=== PATIENT | female | born 1935 | race Native Hawaiian/Other Pacific Islander ===

== ENCOUNTER 2016-06-18 09:29 | Outpatient (CLI) | payer OTHER ==
[~2016-06-18 09:29] MED LIST: ACTOS15 MG PO; ALPR0.5T24 PO; DEMADEX20 MG PO; GABA300C2 PO; GLIM4TAB PO; KETOROLAC15 MG/ML IJ; LEVO0.1224 PO; METO50TA63 PO; NEXIUM40 M1 PO
[2016-06-18 10:31] LABS: POTASSIUM 3.6 mmol/L (3.6-5.2)
[2016-06-18 10:49] LABS: PLATELET COUNT 367 K/uL (152-353)
== END 2016-06-18 19:09 | disposition home or self-care (01) ==
LOC: EDBD 09:29 → LABW 09:29
PROVIDERS: Internal Medicine
DX: E11.9 Type 2 diabetes mellitus without complications (principal); E79.0 Hyperuricemia without signs of inflammatory arthritis and tophaceous disease
CPT/HCPCS: 36415; 80053; 80061; 81000; 82043; 82570; 83036; 84439; 84443; 84550; 85027

== ENCOUNTER 2016-06-29 15:39 | Inpatient (IN) | payer OTHER | END 2016-07-21 12:36 | disposition still patient (30) | LOC: PAVB 15:39 | PROVIDERS: ADMIT Internal Medicine | DX: Z51.89 Encounter for other specified aftercare (principal) ==

== ENCOUNTER 2016-07-15 13:32 | Outpatient (CLI) | payer OTHER ==
[2016-07-15 17:18] LABS: PLATELET COUNT 411 K/uL (152-353)
== END 2016-07-15 19:24 | disposition home or self-care (01) ==
LOC: RAD 13:32
PROVIDERS: Internal Medicine
DX: M54.89 Other dorsalgia (principal); J06.9 Acute upper respiratory infection, unspecified
CPT/HCPCS: 81000; 85027; 87088

== ENCOUNTER 2016-07-19 05:52 | Outpatient (CLI) | payer OTHER | END 2016-07-20 01:56 | disposition home or self-care (01) | LOC: LAB 05:52 | DX: D64.89 Other specified anemias (principal) | CPT/HCPCS: 36415; 85014; 85018 ==

== ENCOUNTER 2016-07-21 13:02 | Inpatient (IN) | payer OTHER | END 2016-08-21 08:11 | disposition still patient (30) | LOC: PAVB 13:02 | PROVIDERS: ADMIT Internal Medicine | DX: Z51.89 Encounter for other specified aftercare (principal) ==

== ENCOUNTER 2016-07-22 07:24 | Outpatient (CLI) | payer OTHER ==
[2016-07-22 10:54] LABS: PLATELET COUNT 301 K/uL (152-353)
== END 2016-07-22 19:29 | disposition home or self-care (01) ==
LOC: LAB 07:24
PROVIDERS: Internal Medicine
DX: D64.89 Other specified anemias (principal); I10 Essential (primary) hypertension
CPT/HCPCS: 36415; 85027

== ENCOUNTER 2016-07-23 05:23 | Outpatient (CLI) | payer OTHER ==
[2016-07-23 05:45] LABS: PLATELET COUNT 331 K/uL (152-353)
== END 2016-07-23 19:45 | disposition home or self-care (01) ==
LOC: LAB 05:23
PROVIDERS: Internal Medicine
DX: I10 Essential (primary) hypertension (principal); D64.9 Anemia, unspecified
CPT/HCPCS: 85027

== ENCOUNTER 2016-07-24 14:12 | Outpatient (CLI) | payer OTHER ==
--- NOTE | 2016-07-24 17:47 | NUR ---
PT TO ROOM PER W/C VIA MAT MAN FOR INFUSION FOR 2 UNITS PRBCS. PT WILL BE D/C'D BACK TO [facility] POST TRANSFUSION.
[2016-07-24 18:25] VITALS: BP 134/63; TEMP 98.7
== END 2016-07-25 05:20 | disposition home or self-care (01) ==
LOC: INF 14:12 → LAB 14:12 → INF 19:15
PROC: 30233N1 Transfusion of Nonautologous Red Blood Cells into Peripheral Vein, Percutaneous Approach (ICD-10-PCS; principal; 2016-07-24)
PROC: 30233N1 Transfusion of Nonautologous Red Blood Cells into Peripheral Vein, Percutaneous Approach (ICD-10-PCS; 2016-07-25)
DX: D64.89 Other specified anemias (principal); D50.8 Other iron deficiency anemias
CPT/HCPCS: 36415; 36430; 82607; 82728; 82746; 83540; 83550; 86850; 86900; 86901; 86922; P9016

== ENCOUNTER 2016-07-25 10:53 | Outpatient (CLI) | payer OTHER | END 2016-07-25 18:59 | disposition home or self-care (01) | LOC: LAB 10:53 | DX: E83.111 Hemochromatosis due to repeated red blood cell transfusions (principal); D64.89 Other specified anemias | CPT/HCPCS: 85014; 85018 ==

== ENCOUNTER 2016-07-31 05:27 | Outpatient (CLI) | payer OTHER ==
[2016-07-31 08:09] LABS: PLATELET COUNT 324 K/uL (152-353)
== END 2016-07-31 19:04 | disposition home or self-care (01) ==
LOC: LAB 05:27
PROVIDERS: Internal Medicine
DX: D64.89 Other specified anemias (principal)
CPT/HCPCS: 36415; 85027

== ENCOUNTER 2016-08-04 06:26 | Outpatient (CLI) | payer OTHER | END 2016-08-04 19:10 | disposition home or self-care (01) | LOC: LAB 06:26 | DX: D64.89 Other specified anemias (principal) | CPT/HCPCS: 82607; 82746 ==

== ENCOUNTER 2016-08-13 05:57 | Outpatient (CLI) | payer OTHER ==
[2016-08-13 08:21] LABS: PLATELET COUNT 222 K/uL (152-353)
== END 2016-08-13 19:58 | disposition home or self-care (01) ==
LOC: LAB 05:57
PROVIDERS: Internal Medicine
DX: D64.89 Other specified anemias (principal)
CPT/HCPCS: 85027

== ENCOUNTER 2016-08-16 04:20 | Outpatient (CLI) | payer OTHER | END 2016-08-16 19:21 | disposition home or self-care (01) | LOC: LAB 04:20 | DX: D64.89 Other specified anemias (principal) | CPT/HCPCS: 36415; 85014; 85018 ==

== ENCOUNTER 2016-08-21 09:13 | Inpatient (IN) | payer OTHER | END 2016-09-20 09:18 | disposition still patient (30) | LOC: PAVB 09:13 | PROVIDERS: ADMIT Internal Medicine | DX: Z51.89 Encounter for other specified aftercare (principal) ==

== ENCOUNTER 2016-08-25 05:04 | Outpatient (CLI) | payer OTHER ==
[2016-08-25 07:05] LABS: PLATELET COUNT 242 K/uL (152-353)
== END 2016-08-25 06:04 | disposition home or self-care (01) ==
LOC: LAB 05:04
PROVIDERS: Internal Medicine
DX: I10 Essential (primary) hypertension (principal); D64.89 Other specified anemias; E11.9 Type 2 diabetes mellitus without complications
CPT/HCPCS: 83036; 85027

== ENCOUNTER 2016-09-08 13:08 | Outpatient (CLI) | payer OTHER | END 2016-09-08 19:07 | disposition home or self-care (01) | LOC: LAB 13:08 | DX: Z16.24 Resistance to multiple antibiotics (principal) | CPT/HCPCS: 87081 ==

== ENCOUNTER 2016-09-20 10:39 | Inpatient (IN) | payer OTHER | END 2016-10-21 10:17 | disposition still patient (30) | LOC: PAVB 10:39 | PROVIDERS: ADMIT Internal Medicine | DX: Z51.89 Encounter for other specified aftercare (principal) | CPT/HCPCS: 85014; 85018 ==

== ENCOUNTER 2016-09-23 10:04 | Outpatient (CLI) | payer OTHER | END 2016-09-23 12:00 | disposition home or self-care (01) | LOC: LAB 10:04 → INF 10:04 | PROC: 30233N1 Transfusion of Nonautologous Red Blood Cells into Peripheral Vein, Percutaneous Approach (ICD-10-PCS; principal; 2016-09-23) | DX: D64.89 Other specified anemias (principal) | CPT/HCPCS: 36415; 36430; 85014; 85018; 86850; 86900; 86901; 86922; P9016 ==

== ENCOUNTER 2016-09-24 14:41 | Outpatient (CLI) | payer OTHER | END 2016-09-24 16:00 | disposition home or self-care (01) | LOC: LAB 14:41 | DX: D64.89 Other specified anemias (principal) ==

== ENCOUNTER 2016-10-19 16:25 | Outpatient (CLI) | payer OTHER | END 2016-10-19 19:34 | disposition home or self-care (01) | LOC: LAB 16:25 | DX: R73.09 Other abnormal glucose (principal) | CPT/HCPCS: 82947 ==

== ENCOUNTER 2016-10-21 10:35 | Inpatient (IN) | payer OTHER | END 2016-11-20 15:21 | disposition still patient (30) | LOC: PAVB 10:35 | PROVIDERS: ADMIT Internal Medicine | DX: Z51.89 Encounter for other specified aftercare (principal) ==

== ENCOUNTER 2016-10-25 07:32 | Outpatient (CLI) | payer OTHER | END 2016-10-25 19:23 | disposition home or self-care (01) | LOC: LAB 07:32 | DX: D64.89 Other specified anemias (principal) | CPT/HCPCS: 85014; 85018 ==

== ENCOUNTER 2016-11-12 21:52 | Outpatient (CLI) | payer OTHER | END 2016-11-12 23:20 | disposition home or self-care (01) | LOC: LAB 21:52 | DX: R73.9 Hyperglycemia, unspecified (principal) | CPT/HCPCS: 82947 ==

== ENCOUNTER 2016-11-20 16:05 | Inpatient (IN) | payer OTHER | END 2016-12-21 09:49 | disposition still patient (30) | LOC: PAVB 16:05 | PROVIDERS: ADMIT Internal Medicine | DX: Z51.89 Encounter for other specified aftercare (principal) ==

== ENCOUNTER 2016-11-22 07:34 | Outpatient (CLI) | payer OTHER ==
[2016-11-22 08:53] LABS: POTASSIUM 3.7 mmol/L (3.6-5.2)
[2016-11-22 08:59] LABS: PLATELET COUNT 228 K/uL (152-353)
== END 2016-11-22 08:35 | disposition home or self-care (01) ==
LOC: LAB 07:34
PROVIDERS: Internal Medicine
DX: D64.89 Other specified anemias (principal); I10 Essential (primary) hypertension; E11.9 Type 2 diabetes mellitus without complications
CPT/HCPCS: 80053; 83036; 84443; 84550; 85027

== ENCOUNTER 2016-11-29 19:54 | Outpatient (CLI) | payer OTHER | END 2016-11-29 21:00 | disposition home or self-care (01) | LOC: RAD 19:54 → CT 19:54 | DX: R29.6 Repeated falls (principal); M54.5 Low back pain ==

== ENCOUNTER 2016-12-02 17:19 | Emergency (ER) | payer OTHER ==
[~2016-12-02] VITALS: Ht 147.3 cm; Wt 71.7 kg
[2016-12-02 18:05] LABS: PLATELET COUNT 274 K/uL (152-353)
[2016-12-02 18:32] LABS: POTASSIUM 4.4 mmol/L (3.6-5.2)
[2016-12-02 20:14] VITALS: BP 144/91; TEMP 98.3
== END 2016-12-02 20:26 | disposition short-term general hospital (02) ==
LOC: ED 17:19
DX: I50.9 Heart failure, unspecified (principal); I48.91 Unspecified atrial fibrillation; E11.65 Type 2 diabetes mellitus with hyperglycemia; R80.8 Other proteinuria
CPT/HCPCS: 36415; 36600; 80053; 81000; 82805; 83880; 84443; 84484; 85027; 93005; 96372; 96374; 96375; 96376; 99284; J3490

== ENCOUNTER 2016-12-02 20:20 | Outpatient (CLI) | payer OTHER | END 2016-12-02 21:07 | disposition short-term general hospital (02) | LOC: AMB 20:20 | DX: I50.9 Heart failure, unspecified (principal); I48.91 Unspecified atrial fibrillation; E11.65 Type 2 diabetes mellitus with hyperglycemia; R80.8 Other proteinuria | CPT/HCPCS: A0425; A0427 ==

== ENCOUNTER 2016-12-12 05:49 | Outpatient (CLI) | payer OTHER ==
[2016-12-12 06:39] LABS: PLATELET COUNT 157 K/uL (152-353)
== END 2016-12-12 06:50 | disposition home or self-care (01) ==
LOC: LAB 05:49
PROVIDERS: Internal Medicine
DX: D50.8 Other iron deficiency anemias (principal)
CPT/HCPCS: 85027

== ENCOUNTER 2016-12-18 14:16 | Outpatient (CLI) | payer OTHER | END 2016-12-18 19:08 | disposition home or self-care (01) | LOC: RAD 14:16 | DX: M25.511 Pain in right shoulder (principal) ==

== ENCOUNTER 2016-12-21 11:32 | Inpatient (IN) | payer OTHER ==
[2017-01-14] MEDS ORDERED: CLOP75TA2 PO (23:54)
[2017-01-14] MEDS ORDERED: ALLO300T23 PO (23:54)
[2017-01-14] MEDS ORDERED: FOLI1TAB26 PO (23:57)
[2017-01-14] MEDS ORDERED: CARDIZEM60 M1 PO (23:57)
[2017-01-15] MEDS ORDERED: GLIP10TA55 PO (00:01)
[2017-01-15] MEDS ORDERED: GABA400C2 PO (00:01)
[2017-01-15] MEDS ORDERED: HYDRALAZINE10 MG PO (00:02)
[2017-01-15] MEDS ORDERED: LABETALOL100 MG PO (00:02)
[2017-01-15] MEDS ORDERED: UNITH DIRECT50 MCG PO (00:03)
[2017-01-15] MEDS ORDERED: ALLERGY10 MG PO (00:04)
[2017-01-15] MEDS ORDERED: MYRBETRIQ50 MG PO (00:06)
[2017-01-15] MEDS ORDERED: PROTONIX20 MG PO (00:06)
[2017-01-15] MEDS ORDERED: PREDNISONE20 MG PO (00:07)
[2017-01-15] MEDS ORDERED: TYLENOL325 MG PO (00:08)
[2017-01-15] MEDS ORDERED: FERR325T5 PO (00:10)
[2017-01-15] MEDS ORDERED: DICL1GEL2 TOP (00:11)
[2017-01-15] MEDS ORDERED: ARTIFICIAL TEAR1 OP (00:12)
[2017-01-15] MEDS ORDERED: COLCRYS 0.6MG0.6 MG PO (00:13)
[2017-01-15] MEDS ORDERED: GUAIFENESIN DM PO (00:14)
[2017-01-21] MEDS ORDERED: PHENELX32 PO (23:11)
[2017-01-21] MEDS ORDERED: CARAFATE1 GM PO (23:12)
[2017-01-21] MEDS ORDERED: CIPRO500 MG PO (23:12)
[2017-01-21] MEDS ORDERED: METR500I3 IVPB (23:13)
== END 2017-01-21 08:47 | disposition still patient (30) ==
LOC: PAVB 11:32
PROVIDERS: ADMIT Internal Medicine
DX: Z51.89 Encounter for other specified aftercare (principal)
CPT/HCPCS: J1940

== ENCOUNTER 2016-12-25 04:55 | Outpatient (CLI) | payer OTHER ==
[2016-12-25 05:30] LABS: PLATELET COUNT 226 K/uL (152-353)
== END 2016-12-25 05:55 | disposition home or self-care (01) ==
LOC: LAB 04:55
PROVIDERS: Internal Medicine
DX: I10 Essential (primary) hypertension (principal)
CPT/HCPCS: 85027

== ENCOUNTER 2017-01-10 05:33 | Outpatient (CLI) | payer OTHER ==
[2017-01-10 06:29] LABS: PLATELET COUNT 225 K/uL (152-353)
== END 2017-01-10 19:29 | disposition home or self-care (01) ==
LOC: INF 05:33 → LAB 05:33 → INF 19:29
PROVIDERS: Internal Medicine
PROC: 30233N1 Transfusion of Nonautologous Red Blood Cells into Peripheral Vein, Percutaneous Approach (ICD-10-PCS; principal; 2017-01-10)
DX: D64.89 Other specified anemias (principal)
CPT/HCPCS: 36415; 36430; 85027; 86850; 86900; 86901; 86922; J1940; P9016

== ENCOUNTER 2017-01-10 23:37 | Outpatient (CLI) | payer OTHER | END 2017-01-10 23:50 | disposition home or self-care (01) | LOC: LAB 23:37 | DX: D50.8 Other iron deficiency anemias (principal) | CPT/HCPCS: 36415; 85014; 85018 ==

== ENCOUNTER 2017-01-14 23:25 | Emergency (ER) | payer OTHER ==
[~2017-01-14] VITALS: Ht 149.9 cm; Wt 72.6 kg
[2017-01-14 23:26] VITALS: TEMP 97.9
[2017-01-14] MEDS ORDERED: ALLO300T23 PO (23:54)
[2017-01-14] MEDS ORDERED: CLOP75TA2 PO (23:54)
[2017-01-14] MEDS ORDERED: FOLI1TAB26 PO (23:57)
[2017-01-14] MEDS ORDERED: CARDIZEM60 M1 PO (23:57)
[2017-01-15] MEDS ORDERED: GLIP10TA55 PO (00:01)
[2017-01-15] MEDS ORDERED: GABA400C2 PO (00:01)
[2017-01-15] MEDS ORDERED: LABETALOL100 MG PO (00:02)
[2017-01-15] MEDS ORDERED: HYDRALAZINE10 MG PO (00:02)
[2017-01-15] MEDS ORDERED: UNITH DIRECT50 MCG PO (00:03)
[2017-01-15] MEDS ORDERED: ALLERGY10 MG PO (00:04)
[2017-01-15] MEDS ORDERED: PROTONIX20 MG PO (00:06)
[2017-01-15] MEDS ORDERED: MYRBETRIQ50 MG PO (00:06)
[2017-01-15] MEDS ORDERED: PREDNISONE20 MG PO (00:07)
[2017-01-15] MEDS ORDERED: TYLENOL325 MG PO (00:08)
[2017-01-15] MEDS ORDERED: FERR325T5 PO (00:10)
[2017-01-15] MEDS ORDERED: DICL1GEL2 TOP (00:11)
[2017-01-15] MEDS ORDERED: ARTIFICIAL TEAR1 OP (00:12)
[2017-01-15 00:13] LABS: PLATELET COUNT 241 K/uL (152-353)
[2017-01-15] MEDS ORDERED: COLCRYS 0.6MG0.6 MG PO (00:13)
[2017-01-15] MEDS ORDERED: GUAIFENESIN DM PO (00:14)
[2017-01-15 00:34] LABS: POTASSIUM 3.9 mmol/L (3.6-5.2)
[2017-01-15 03:52] VITALS: BP 159/71
== END 2017-01-15 04:03 | disposition home or self-care (01) ==
LOC: ED 23:25
DX: K57.90 Diverticulosis of intestine, part unspecified, without perforation or abscess without bleeding (principal); K92.2 Gastrointestinal hemorrhage, unspecified
CPT/HCPCS: 80053; 85027; 99283; J1815

== ENCOUNTER 2017-01-20 06:01 | Outpatient (CLI) | payer OTHER ==
[~2017-01-20 06:01] MED LIST changes: +ALLERGY10 MG PO; +ALLO300T23 PO; +ARTIFICIAL TEAR1 OP; +CARDIZEM60 M1 PO; +CLOP75TA2 PO; +COLCRYS 0.6MG0.6 MG PO; +DICL1GEL2 TOP; +FERR325T5 PO; +FOLI1TAB26 PO; +GABA400C2 PO; +GLIP10TA55 PO; +GUAIFENESIN DM PO; +HYDRALAZINE10 MG PO; +LABETALOL100 MG PO; +MYRBETRIQ50 MG PO; +PREDNISONE20 MG PO; +PROTONIX20 MG PO; +TYLENOL325 MG PO; +UNITH DIRECT50 MCG PO
[2017-01-20 06:11] LABS: PLATELET COUNT 247 K/uL (152-353)
[2017-01-21] MEDS ORDERED: PHENELX32 PO (23:11)
[2017-01-21] MEDS ORDERED: CIPRO500 MG PO (23:12)
[2017-01-21] MEDS ORDERED: CARAFATE1 GM PO (23:12)
[2017-01-21] MEDS ORDERED: METR500I3 IVPB (23:13)
== END 2017-01-20 18:57 | disposition home or self-care (01) ==
LOC: LAB 06:01 → INF 06:01
PROVIDERS: Internal Medicine
PROC: 30233N1 Transfusion of Nonautologous Red Blood Cells into Peripheral Vein, Percutaneous Approach (ICD-10-PCS; principal; 2017-01-20)
DX: D64.89 Other specified anemias (principal)
CPT/HCPCS: 36415; 36430; 85027; 86850; 86900; 86901; 86922; 96374; P9016

== ENCOUNTER 2017-01-21 09:40 | Inpatient (IN) | payer OTHER ==
[2017-01-21] MEDS ORDERED: PHENELX32 PO (23:11)
[2017-01-21] MEDS ORDERED: CARAFATE1 GM PO (23:12)
[2017-01-21] MEDS ORDERED: CIPRO500 MG PO (23:12)
[2017-01-21] MEDS ORDERED: METR500I3 IVPB (23:13)
== END 2017-02-20 10:11 | disposition still patient (30) ==
LOC: PAVB 09:40
PROVIDERS: ADMIT Internal Medicine
DX: Z51.89 Encounter for other specified aftercare (principal)

== ENCOUNTER 2017-01-21 22:56 | Emergency (ER) | payer OTHER ==
[~2017-01-21] VITALS: Ht 157.5 cm; Wt 73.0 kg
[2017-01-21] MEDS ORDERED: PHENELX32 PO (23:11)
[2017-01-21] MEDS ORDERED: CARAFATE1 GM PO (23:12)
[2017-01-21] MEDS ORDERED: CIPRO500 MG PO (23:12)
[2017-01-21] MEDS ORDERED: METR500I3 IVPB (23:13)
[2017-01-21 23:40] LABS: PLATELET COUNT 316 K/uL (152-353)
[2017-01-21 23:47] LABS: POTASSIUM 4.4 mmol/L (3.6-5.2)
[2017-01-22 01:35] VITALS: BP 173/84; TEMP 98.3
== END 2017-01-22 01:36 | disposition home or self-care (01) ==
LOC: ED 22:56
PROVIDERS: Specialist
DX: E86.9 Volume depletion, unspecified (principal); E11.65 Type 2 diabetes mellitus with hyperglycemia; Z79.4 Long term (current) use of insulin
CPT/HCPCS: 36415; 80053; 81000; 81002; 82962; 83735; 84100; 85027; 96360; 99284; J1815

== ENCOUNTER 2017-01-24 06:55 | Outpatient (CLI) | payer OTHER ==
[~2017-01-24 06:55] MED LIST changes: +CARAFATE1 GM PO; +CIPRO500 MG PO; +METR500I3 IVPB; +PHENELX32 PO
== END 2017-01-24 18:58 | disposition home or self-care (01) ==
LOC: LAB 06:55
DX: D64.89 Other specified anemias (principal)
CPT/HCPCS: 85014; 85018

== ENCOUNTER 2017-02-20 10:26 | Inpatient (IN) | payer OTHER | END 2017-03-23 13:05 | disposition still patient (30) | LOC: PAVB 10:26 | PROVIDERS: ADMIT Internal Medicine ==

== ENCOUNTER 2017-02-22 05:45 | Outpatient (CLI) | payer OTHER ==
[2017-02-22 07:53] LABS: PLATELET COUNT 281 K/uL (152-353)
== END 2017-02-22 06:45 | disposition home or self-care (01) ==
LOC: LAB 05:45
PROVIDERS: Internal Medicine
DX: D64.89 Other specified anemias (principal); E11.9 Type 2 diabetes mellitus without complications
CPT/HCPCS: 36415; 83036; 85027

== ENCOUNTER 2017-03-11 11:29 | Outpatient (CLI) | payer OTHER | END 2017-03-11 19:07 | disposition home or self-care (01) | LOC: LAB 11:29 | DX: R19.7 Diarrhea, unspecified (principal); R10.84 Generalized abdominal pain | CPT/HCPCS: 87015; 87045; 87205; 87324; 87328; 87329; 87449; 87899 ==

== ENCOUNTER 2017-03-23 14:17 | Inpatient (IN) | payer OTHER ==
[2017-03-26] MEDS ORDERED: BENTYL10 MG PO (05:09)
[2017-03-26] MEDS ORDERED: PHENELX32 PO (05:11)
[2017-03-26] MEDS ORDERED: HUMULIN R1 M1 SC (05:12)
== END 2017-04-22 09:25 | disposition still patient (30) ==
LOC: PAVB 14:17
PROVIDERS: ADMIT Internal Medicine

== ENCOUNTER 2017-03-25 05:49 | Outpatient (CLI) | payer OTHER ==
[2017-03-26] MEDS ORDERED: BENTYL10 MG PO (05:09)
[2017-03-26] MEDS ORDERED: PHENELX32 PO (05:11)
[2017-03-26] MEDS ORDERED: HUMULIN R1 M1 SC (05:12)
== END 2017-03-25 06:50 | disposition home or self-care (01) ==
LOC: LAB 05:49
DX: D64.89 Other specified anemias (principal)
CPT/HCPCS: 85014; 85018

== ENCOUNTER 2017-03-26 03:46 | Observation (INO) | payer OTHER ==
[~2017-03-26] VITALS: Ht 147.3 cm; Wt 75.9 kg
[2017-03-26 04:15] VITALS: BP 120/83; TEMP 98
[2017-03-26 04:17] LABS: PLATELET COUNT 372 K/uL (152-353)
[2017-03-26 04:28] LABS: POTASSIUM 3.6 mmol/L (3.6-5.2)
[2017-03-26 04:54] LABS: PARTIAL THROMBOPLASTIN TIME 25.2 SECONDS (24.5-33.6)
[2017-03-26] MEDS ORDERED: BENTYL10 MG PO (05:09)
[2017-03-26] MEDS ORDERED: PHENELX32 PO (05:11)
[2017-03-26] MEDS ORDERED: HUMULIN R1 M1 SC (05:12)
[2017-03-26 06:49] VITALS: BP 149/62; TEMP 98.2; Ht 147.3 cm; Wt 75.9 kg
[2017-03-26 08:00] VITALS: BP 143/60; TEMP 98.2
[2017-03-26 12:00] VITALS: BP 128/58; TEMP 98.7
[2017-03-26 16:00] VITALS: BP 172/73; TEMP 99
[2017-03-26 20:00] VITALS: BP 187/85; TEMP 102.1
[2017-03-27] VITALS: BP 141/66; TEMP 99.3
[2017-03-27 04:00] VITALS: BP 129/62; TEMP 98.8
[2017-03-27 05:19] LABS: PLATELET COUNT 283 K/uL (152-353)
[2017-03-27 05:26] LABS: POTASSIUM 2.6 mmol/L (3.6-5.2)
[2017-03-27 08:00] VITALS: BP 136/64; TEMP 98.9
[2017-03-27 12:00] VITALS: BP 105/57; TEMP 98.8
== END 2017-03-27 13:20 ==
LOC: ED 03:46 → MED/SURG 05:00
PROVIDERS: Specialist
DX: R07.89 Other chest pain (principal); R11.2 Nausea with vomiting, unspecified; N39.0 Urinary tract infection, site not specified; I10 Essential (primary) hypertension; E11.9 Type 2 diabetes mellitus without complications; E03.8 Other specified hypothyroidism
CPT/HCPCS: 36415; 80053; 81000; 82150; 82550; 82947; 82948; 83690; 84484; 85014; 85018; 85027; 85610; 85730; 87088; 93005; 96372; 96374; 99220; 99284; G0378; J1170; J1650; J1815

== ENCOUNTER 2017-03-31 05:42 | Outpatient (CLI) | payer OTHER ==
[~2017-03-31 05:42] MED LIST changes: +BENTYL10 MG PO; +HUMULIN R1 M1 SC
[2017-03-31 12:51] LABS: POTASSIUM 4.3 mmol/L (3.6-5.2)
== END 2017-03-31 19:09 | disposition home or self-care (01) ==
LOC: LAB 05:42
PROVIDERS: Internal Medicine
DX: D64.89 Other specified anemias (principal); E87.6 Hypokalemia
CPT/HCPCS: 36415; 80048; 85014; 85018

== ENCOUNTER 2017-04-07 05:21 | Outpatient (CLI) | payer OTHER ==
[2017-04-07 08:34] LABS: PLATELET COUNT 379 K/uL (152-353)
== END 2017-04-07 19:05 | disposition home or self-care (01) ==
LOC: LAB 05:21
PROVIDERS: Internal Medicine
DX: I10 Essential (primary) hypertension (principal)
CPT/HCPCS: 85027

== ENCOUNTER 2017-04-12 06:18 | Outpatient (CLI) | payer OTHER ==
[2017-04-12 06:52] LABS: PLATELET COUNT 336 K/uL (152-353)
== END 2017-04-12 19:01 | disposition home or self-care (01) ==
LOC: LAB 06:18
PROVIDERS: Internal Medicine
DX: D64.9 Anemia, unspecified (principal)
CPT/HCPCS: 85027

== ENCOUNTER 2017-04-19 03:54 | Outpatient (CLI) | payer OTHER ==
[2017-04-19 04:08] LABS: PLATELET COUNT 273 K/uL (152-353)
== END 2017-04-19 19:05 | disposition home or self-care (01) ==
LOC: LAB 03:54
PROVIDERS: Internal Medicine
DX: D64.89 Other specified anemias (principal)
CPT/HCPCS: 36415; 85027

== ENCOUNTER 2017-04-20 22:46 | Inpatient (IN) | payer OTHER ==
[~2017-04-20] VITALS: Ht 147.3 cm; Wt 71.7 kg
[2017-04-20 22:58] VITALS: BP 137/62; TEMP 103.2
[2017-04-20 23:51] LABS: PLATELET COUNT 259 K/uL (152-353)
[2017-04-20 23:59] LABS: POTASSIUM 3.3 mmol/L (3.6-5.2)
[2017-04-21] VITALS (20 sets, daily range): BP systolic 90–1333; BP diastolic 41–80; TEMP 99.3–101.9; Ht 147.3 cm; Wt 71.7 kg
[2017-04-21 06:37] LABS: PLATELET COUNT 237 K/uL (152-353)
[2017-04-21 06:55] LABS: POTASSIUM 3.3 mmol/L (3.6-5.2)
[2017-04-21 07:34] LABS: PARTIAL THROMBOPLASTIN TIME 25.4 SECONDS (24.5-33.6)
== END 2017-04-21 21:05 | disposition short-term general hospital (02) | DRG 871 ==
LOC: ED 22:46 → MED/SURG 04-21 02:00 → ICU 04-21 03:40
PROVIDERS: ADMIT Family Medicine
DX: A41.89 Other specified sepsis (principal); K85.80 Other acute pancreatitis without necrosis or infection; N39.0 Urinary tract infection, site not specified; E11.69 Type 2 diabetes mellitus with other specified complication; E86.0 Dehydration; E87.6 Hypokalemia; R11.2 Nausea with vomiting, unspecified; D72.828 Other elevated white blood cell count; D53.9 Nutritional anemia, unspecified; K57.10 Diverticulosis of small intestine without perforation or abscess without bleeding; D64.89 Other specified anemias
CPT/HCPCS: 36415; 51702; 80053; 81000; 81002; 82150; 82550; 82553; 82962; 83605; 83690; 83735; 83880; 84484; 85027; 85610; 85730; 87040; 87077; 87086; 87088; 87186; 87804; 93005; 94760; 96361; 96365; 99285; J1650; J2543

== ENCOUNTER 2017-04-22 10:08 | Inpatient (IN) | payer OTHER ==
[2017-05-10 07:06] LABS: PLATELET COUNT 512 K/uL (152-353)
== END 2017-05-23 09:45 | disposition still patient (30) ==
LOC: PAVB 10:08
PROVIDERS: ADMIT Internal Medicine
DX: K81.0 Acute cholecystitis (principal); A41.89 Other specified sepsis; K86.1 Other chronic pancreatitis; N39.0 Urinary tract infection, site not specified
CPT/HCPCS: 85027

== ENCOUNTER 2017-05-03 05:27 | Outpatient (CLI) | payer OTHER ==
[2017-05-03 06:33] LABS: PLATELET COUNT 443 K/uL (152-353)
== END 2017-05-03 19:23 | disposition home or self-care (01) ==
LOC: LAB 05:27
PROVIDERS: Internal Medicine
DX: D64.89 Other specified anemias (principal)
CPT/HCPCS: 85027

== ENCOUNTER 2017-05-23 10:55 | Inpatient (IN) | payer OTHER | END 2017-06-23 10:01 | disposition still patient (30) | LOC: PAVB 10:55 | PROVIDERS: ADMIT Internal Medicine ==

== ENCOUNTER 2017-05-24 05:55 | Outpatient (CLI) | payer OTHER ==
[2017-05-24 07:53] LABS: PLATELET COUNT 355 K/uL (152-353)
[2017-05-24 10:09] LABS: POTASSIUM 2.9 mmol/L (3.6-5.2); SODIUM 138 mmol/L (136-145)
== END 2017-05-24 20:24 | disposition home or self-care (01) ==
LOC: LAB 05:55
PROVIDERS: Internal Medicine
DX: E11.9 Type 2 diabetes mellitus without complications (principal); I10 Essential (primary) hypertension; D64.89 Other specified anemias
CPT/HCPCS: 80053; 83036; 84443; 84550; 85027

== ENCOUNTER 2017-05-31 06:12 | Outpatient (CLI) | payer OTHER ==
[2017-05-31 06:32] LABS: PLATELET COUNT 375 K/uL (152-353)
[2017-05-31 08:58] LABS: POTASSIUM 4.9 mmol/L (3.6-5.2)
== END 2017-05-31 19:02 | disposition home or self-care (01) ==
LOC: LAB 06:12
PROVIDERS: Internal Medicine
DX: E87.6 Hypokalemia (principal); E03.8 Other specified hypothyroidism; D64.89 Other specified anemias
CPT/HCPCS: 80048; 85027

== ENCOUNTER 2017-06-05 15:55 | Outpatient (CLI) | payer OTHER | END 2017-06-05 23:12 | disposition home or self-care (01) | LOC: LAB 15:55 | DX: R50.9 Fever, unspecified (principal) | CPT/HCPCS: 87804 ==

== ENCOUNTER 2017-06-07 05:17 | Outpatient (CLI) | payer OTHER ==
[~2017-06-07] VITALS: Ht 147.3 cm; Wt 70.8 kg
[2017-06-07 06:14] LABS: PLATELET COUNT 369 K/uL (152-353)
== END 2017-06-07 22:15 | disposition home or self-care (01) ==
LOC: LAB 05:17 → INF 05:17
PROVIDERS: Internal Medicine
PROC: 30233N1 Transfusion of Nonautologous Red Blood Cells into Peripheral Vein, Percutaneous Approach (ICD-10-PCS; principal; 2017-06-07)
DX: D64.89 Other specified anemias (principal)
CPT/HCPCS: 36415; 36430; 82272; 85027; 86850; 86900; 86901; 86922; 96374; 96375; J1940; J2405; J3490; P9016

== ENCOUNTER 2017-06-08 03:26 | Outpatient (CLI) | payer OTHER | END 2017-06-08 19:54 | disposition home or self-care (01) | LOC: LAB 03:26 | DX: D64.89 Other specified anemias (principal) | CPT/HCPCS: 36415; 85014; 85018 ==

== ENCOUNTER → 2017-06-15 03:57 | Outpatient (CLI) | payer OTHER ==
[2017-06-15 05:24] LABS: PLATELET COUNT 322 K/uL (152-353)
== END | disposition home or self-care (01) ==
LOC: LAB 03:57
PROVIDERS: Internal Medicine
DX: K57.91 Diverticulosis of intestine, part unspecified, without perforation or abscess with bleeding (principal)
CPT/HCPCS: 85027

== ENCOUNTER 2017-06-22 22:21 | Outpatient (CLI) | payer OTHER | END 2017-06-23 04:32 | disposition home or self-care (01) | LOC: RAD 22:21 | DX: S09.90XA Unspecified injury of head, initial encounter (principal) ==

== ENCOUNTER 2017-06-23 11:10 | Inpatient (IN) | payer OTHER | END 2017-07-21 09:24 | disposition still patient (30) | LOC: PAVB 11:10 | PROVIDERS: ADMIT Internal Medicine ==

== ENCOUNTER 2017-06-23 20:57 | Outpatient (CLI) | payer OTHER ==
[2017-06-23 21:46] LABS: PLATELET COUNT 467 K/uL (152-353)
== END 2017-06-23 22:00 ==
LOC: LAB 20:57
PROVIDERS: Internal Medicine
DX: D64.89 Other specified anemias (principal)
CPT/HCPCS: 36415; 36430; 85027; 86850; 86900; 86901; 86922; 96374; 96376; J1940; P9016

== ENCOUNTER 2017-06-27 21:59 | Outpatient (CLI) | payer OTHER | END 2017-06-27 23:00 | disposition home or self-care (01) | LOC: LAB 21:59 | DX: D64.89 Other specified anemias (principal); E08.40 Diabetes mellitus due to underlying condition with diabetic neuropathy, unspecified | CPT/HCPCS: 36415; 82947 ==

== ENCOUNTER 2017-07-19 06:02 | Outpatient (CLI) | payer OTHER | END 2017-07-19 19:52 | disposition home or self-care (01) | LOC: LABW 06:02 → LAB 06:02 | DX: E03.8 Other specified hypothyroidism (principal) | CPT/HCPCS: 84439; 84443 ==

== ENCOUNTER 2017-07-21 10:33 | Inpatient (IN) | payer OTHER | END 2017-08-21 08:00 | disposition still patient (30) | LOC: PAVB 10:33 | PROVIDERS: ADMIT Internal Medicine ==

== ENCOUNTER 2017-07-26 13:24 | Outpatient (CLI) | payer OTHER | END 2017-07-26 18:18 | disposition home or self-care (01) | LOC: LAB 13:24 | DX: D64.89 Other specified anemias (principal) | CPT/HCPCS: 85014; 85018 ==

== ENCOUNTER 2017-07-27 07:43 | Day surgery (SDC) | payer OTHER | END 2017-07-27 16:50 | disposition home or self-care (01) | LOC: OR 07:43 | PROC: 30233N1 Transfusion of Nonautologous Red Blood Cells into Peripheral Vein, Percutaneous Approach (ICD-10-PCS; principal; 2017-07-27) | PROC: 0H97XZZ Drainage of Abdomen Skin, External Approach (ICD-10-PCS; 2017-07-27) | PROC: 0HC7XZZ Extirpation of Matter from Abdomen Skin, External Approach (ICD-10-PCS; 2017-07-27) | DX: D64.89 Other specified anemias (principal); L02.211 Cutaneous abscess of abdominal wall; L72.3 Sebaceous cyst | CPT/HCPCS: 36430; 85014; 85018; 86850; 86900; 86901; 86922; 87070; 87076; 87205; 96374; J1940; J2250; J2704; J3010; J3490; P9016 ==

== ENCOUNTER 2017-07-27 22:20 | Outpatient (CLI) | payer OTHER | END 2017-07-27 23:35 | disposition home or self-care (01) | LOC: LAB 22:20 | DX: D64.89 Other specified anemias (principal) | CPT/HCPCS: 85014; 85018 ==

== ENCOUNTER 2017-08-21 09:00 | Inpatient (IN) | payer OTHER ==
[~2017-08-21] VITALS: Ht 142.2 cm; Wt 71.2 kg
== END 2017-09-20 09:06 | disposition still patient (30) ==
LOC: PAVB 09:00
PROVIDERS: ADMIT Internal Medicine
CPT/HCPCS: J1940

== ENCOUNTER 2017-08-24 06:01 | Outpatient (CLI) | payer OTHER ==
[2017-08-24 07:00] LABS: PLATELET COUNT 282 K/uL (152-353)
[2017-08-24 13:10] VITALS: BP 123/47; TEMP 98.4
[2017-08-24 16:32] VITALS: BP 155/57; TEMP 98.3
[2017-08-25 14:39] VITALS: BP 132/56; TEMP 98.3
== END 2017-08-25 13:20 | disposition home or self-care (01) ==
LOC: LAB 06:01 → INF 06:01
PROVIDERS: Internal Medicine
PROC: 30233N1 Transfusion of Nonautologous Red Blood Cells into Peripheral Vein, Percutaneous Approach (ICD-10-PCS; principal; 2017-08-24)
PROC: 30233N1 Transfusion of Nonautologous Red Blood Cells into Peripheral Vein, Percutaneous Approach (ICD-10-PCS; 2017-08-25)
DX: E11.9 Type 2 diabetes mellitus without complications (principal); D64.89 Other specified anemias
CPT/HCPCS: 36430; 83036; 85027; 86850; 86900; 86901; 86922; 96374; P9016

== ENCOUNTER 2017-08-25 22:08 | Outpatient (CLI) | payer OTHER | END 2017-08-25 22:52 | disposition home or self-care (01) | LOC: LAB 22:08 | DX: D64.9 Anemia, unspecified (principal) | CPT/HCPCS: 36415; 85014; 85018 ==

== ENCOUNTER 2017-09-05 14:02 | Outpatient (CLI) | payer OTHER | END 2017-09-05 20:07 | disposition home or self-care (01) | LOC: RAD 14:02 | DX: R05 Cough (principal) ==

== ENCOUNTER 2017-09-13 06:32 | Outpatient (CLI) | payer OTHER | END 2017-09-13 22:27 | disposition home or self-care (01) | LOC: LAB 06:32 | DX: E03.8 Other specified hypothyroidism (principal) | CPT/HCPCS: 36415; 84439; 84443 ==

== ENCOUNTER 2017-09-20 09:53 | Inpatient (IN) | payer OTHER ==
[~2017-09-20] VITALS: Ht 152.4 cm; Wt 74.9 kg
[2017-10-06] MEDS ORDERED: FERROUS SULF325 M1 PO (01:04)
[2017-10-06] MEDS ORDERED: FLONASE AL50 MCG/ACT NAS (01:06)
[2017-10-06] MEDS ORDERED: FURO20TA67 PO (01:08)
[2017-10-06] MEDS ORDERED: LEVO-T88 MCG PO (01:33)
[2017-10-06] MEDS ORDERED: ALLERGY RELF10 M1 PO (01:34)
[2017-10-06] MEDS ORDERED: PROTONIX20 MG PO (01:37)
[2017-10-06] MEDS ORDERED: ROPINIROLE0.5 MG PO (01:39)
[2017-10-06] MEDS ORDERED: CARAFATE1 GM PO (01:41)
[2017-10-06] MEDS ORDERED: DICL1GEL2 TOP (01:44)
[2017-10-06] MEDS ORDERED: TESSALON PER100 MG PO (01:45)
[2017-10-06] MEDS ORDERED: SALINE NASAL S0.651 (01:47)
[2017-10-06] MEDS ORDERED: PHENELX32 PO (01:52)
[2017-10-06] MEDS ORDERED: GUAIFENESIN DM PO (01:54)
[2017-10-06] MEDS ORDERED: HYDR5TAB9 PO (01:56)
[2017-10-06] MEDS ORDERED: TRAM50TA PO (01:58)
[2017-10-06] MEDS ORDERED: INSUINJP SC (01:59)
[2017-10-06] MEDS ORDERED: LANTUS100 MG/ML SC (13:02)
[2017-10-12] MEDS ORDERED: AMOXICILLIN PO (02:09)
== END 2017-10-21 08:54 | disposition still patient (30) ==
LOC: PAVB 09:53
PROVIDERS: ADMIT Internal Medicine
CPT/HCPCS: 85014; 85018

== ENCOUNTER 2017-09-21 07:42 | Outpatient (CLI) | payer OTHER ==
[~2017-09-21] VITALS: Ht 152.4 cm; Wt 74.8 kg
== END 2017-09-22 16:00 | disposition home or self-care (01) ==
LOC: INF 07:42 → LAB 07:42 → INF 21:37
PROC: 30233N1 Transfusion of Nonautologous Red Blood Cells into Peripheral Vein, Percutaneous Approach (ICD-10-PCS; principal; 2017-09-21)
PROC: 30233N1 Transfusion of Nonautologous Red Blood Cells into Peripheral Vein, Percutaneous Approach (ICD-10-PCS; 2017-09-22)
DX: D64.89 Other specified anemias (principal)
CPT/HCPCS: 36430; 85014; 85018; 86850; 86900; 86901; 86922; P9016

== ENCOUNTER 2017-09-22 07:05 | Outpatient (CLI) | payer OTHER | END 2017-09-22 22:26 | disposition home or self-care (01) | LOC: RAD 07:05 → LAB 07:05 | DX: M25.551 Pain in right hip (principal); D64.89 Other specified anemias; M25.512 Pain in left shoulder; M25.511 Pain in right shoulder; M54.2 Cervicalgia ==

== ENCOUNTER 2017-09-27 00:39 | Outpatient (CLI) | payer OTHER | END 2017-09-27 19:48 | disposition home or self-care (01) | LOC: CT 00:39 | DX: S00.03XA Contusion of scalp, initial encounter (principal); R51 Headache; W19.XXXA Unspecified fall, initial encounter; Y92.238 Other place in hospital as the place of occurrence of the external cause ==

== ENCOUNTER 2017-10-06 11:36 | Inpatient (IN) | payer OTHER ==
[2017-10-06] VITALS (15 sets, daily range): BP systolic 129–153; BP diastolic 53–100; TEMP 98–98.8; Ht 147.3 cm; Wt 78.5 kg
[~2017-10-06] VITALS: Ht 147.3 cm; Wt 78.5 kg
[~2017-10-06 11:36] MED LIST changes: +ALLERGY RELF10 M1 PO; +FERROUS SULF325 M1 PO; +FLONASE AL50 MCG/ACT NAS; +FURO20TA67 PO; +HYDR5TAB9 PO; +INSUINJP SC; +LEVO-T88 MCG PO; +ROPINIROLE0.5 MG PO; +SALINE NASAL S0.651; +TESSALON PER100 MG PO; +TRAM50TA PO
[2017-10-06 12:59] LABS: POTASSIUM 3.5 mmol/L (3.6-5.2)
[2017-10-06 13:00] LABS: PLATELET COUNT 392 K/uL (152-353)
[2017-10-06] MEDS ORDERED: LANTUS100 MG/ML SC (13:02)
[2017-10-06 13:22] LABS: PARTIAL THROMBOPLASTIN TIME 19.8 SECONDS (24.5-33.6)
[2017-10-07] VITALS (22 sets, daily range): BP systolic 127–172; BP diastolic 63–101; TEMP 98.4–99
[2017-10-07 08:38] LABS: PLATELET COUNT 347 K/uL (152-353)
[2017-10-07 08:46] LABS: POTASSIUM 3.7 mmol/L (3.6-5.2)
[2017-10-08] VITALS (24 sets, daily range): BP systolic 122–181; BP diastolic 69–93; TEMP 97.9–99
[2017-10-08 06:30] LABS: PLATELET COUNT 334 K/uL (152-353)
[2017-10-08 06:46] LABS: POTASSIUM 3.8 mmol/L (3.6-5.2)
[2017-10-09] VITALS (18 sets, daily range): BP systolic 33–165; BP diastolic 1–94; TEMP 97.9–98.2
[2017-10-09 09:04] LABS: PLATELET COUNT 352 K/uL (152-353)
[2017-10-09 09:33] LABS: POTASSIUM 3.6 mmol/L (3.6-5.2)
[2017-10-10] VITALS (15 sets, daily range): BP systolic 106–161; BP diastolic 52–88; TEMP 97.3–98.6
[2017-10-10 06:08] LABS: POTASSIUM 4.2 mmol/L (3.6-5.2)
[2017-10-10 06:19] LABS: PLATELET COUNT 144 K/uL (152-353)
[2017-10-11] VITALS (28 sets, daily range): BP systolic 108–178; BP diastolic 56–98; TEMP 97.1–98.5
[2017-10-11 08:55] LABS: PLATELET COUNT 283 K/uL (152-353)
[2017-10-11 09:06] LABS: POTASSIUM 3.7 mmol/L (3.6-5.2)
[2017-10-12] VITALS (15 sets, daily range): BP systolic 116–169; BP diastolic 58–86; TEMP 98–98.8
[2017-10-12] MEDS ORDERED: AMOXICILLIN PO (02:09)
[2017-10-12 06:26] LABS: PLATELET COUNT 232 K/uL (152-353)
[2017-10-12 06:36] LABS: POTASSIUM 3.8 mmol/L (3.6-5.2)
[2017-10-13] VITALS: BP 148/52; TEMP 98.6
[2017-10-13 04:00] VITALS: BP 150/61; TEMP 98.7
[2017-10-13 05:50] LABS: PLATELET COUNT 228 K/uL (152-353)
[2017-10-13 06:29] LABS: POTASSIUM 4.1 mmol/L (3.6-5.2)
[2017-10-13 08:00] VITALS: BP 141/48; TEMP 98.5
[2017-10-13 12:00] VITALS: BP 135/93; TEMP 98.7
[2017-10-13 16:00] VITALS: BP 128/50; TEMP 100.1
[2017-10-13 20:00] VITALS: BP 142/51; TEMP 99.4
[2017-10-14] VITALS: BP 138/52; TEMP 99.4
[2017-10-14 03:59] VITALS: BP 136/49; TEMP 99
[2017-10-14 05:18] LABS: PLATELET COUNT 227 K/uL (152-353)
[2017-10-14 05:34] LABS: POTASSIUM 4.1 mmol/L (3.6-5.2)
[2017-10-14 08:00] VITALS: BP 169/74; TEMP 97.8
[2017-10-14 11:41] VITALS: BP 143/54; TEMP 99.2
== END 2017-10-14 13:00 | DRG 378 ==
LOC: ICU 11:36 → MED/SURG 10-12 17:30
PROVIDERS: Emergency Medicine; Family Medicine; ADMIT Nurse Practitioner Family
PROC: 30233N1 Transfusion of Nonautologous Red Blood Cells into Peripheral Vein, Percutaneous Approach (ICD-10-PCS; principal; 2017-10-06)
PROC: 0DJD8ZZ Inspection of Lower Intestinal Tract, Via Natural or Artificial Opening Endoscopic (ICD-10-PCS; 2017-10-11)
DX: K92.2 Gastrointestinal hemorrhage, unspecified (principal); N39.0 Urinary tract infection, site not specified; I48.91 Unspecified atrial fibrillation; K64.0 First degree hemorrhoids; K57.30 Diverticulosis of large intestine without perforation or abscess without bleeding; I10 Essential (primary) hypertension; E11.9 Type 2 diabetes mellitus without complications; E03.8 Other specified hypothyroidism; M79.7 Fibromyalgia; M10.9 Gout, unspecified; M54.2 Cervicalgia; B96.20 Unspecified Escherichia coli [E. coli] as the cause of diseases classified elsewhere; D64.89 Other specified anemias
CPT/HCPCS: 36415; 36430; 36600; 80053; 81002; 82272; 82607; 82805; 82947; 82948; 82962; 83605; 84443; 85027; 85379; 85610; 85730; 93005; 96372; J1630; J1815; J1885; J1940; J2001; J2704; J3490

== ENCOUNTER 2017-10-21 09:27 | Inpatient (IN) | payer OTHER ==
[~2017-10-21 09:27] MED LIST changes: +AMOXICILLIN PO; +LANTUS100 MG/ML SC
== END 2017-11-20 14:21 | disposition still patient (30) ==
LOC: PAVB 09:27
PROVIDERS: ADMIT Internal Medicine

== ENCOUNTER 2017-10-25 08:40 | Outpatient (CLI) | payer OTHER | END 2017-10-25 22:19 | disposition home or self-care (01) | LOC: LAB 08:40 | DX: D64.89 Other specified anemias (principal) | CPT/HCPCS: 85014; 85018 ==

== ENCOUNTER 2017-11-07 07:37 | Outpatient (CLI) | payer OTHER ==
[2017-11-07 08:19] LABS: PLATELET COUNT 309 K/uL (152-353)
== END 2017-11-07 22:33 | disposition home or self-care (01) ==
LOC: LAB 07:37
PROVIDERS: Internal Medicine
DX: D64.89 Other specified anemias (principal)
CPT/HCPCS: 85027

== ENCOUNTER 2017-11-20 14:58 | Inpatient (IN) | payer OTHER | END 2017-12-21 08:00 | disposition still patient (30) | LOC: PAVB 14:58 | PROVIDERS: ADMIT Internal Medicine | CPT/HCPCS: 85014; 85018; J1940 ==

== ENCOUNTER 2017-11-25 07:24 | Outpatient (CLI) | payer OTHER ==
[2017-11-25 08:15] LABS: PLATELET COUNT 298 K/uL (152-353)
[2017-11-25 08:19] LABS: POTASSIUM 3.6 mmol/L (3.6-5.2)
== END 2017-11-25 23:23 | disposition home or self-care (01) ==
LOC: LAB 07:24 → INF 07:24 → LAB 13:00 → INF 23:23 → LAB 11-28 13:00
PROVIDERS: Internal Medicine
PROC: 30233N1 Transfusion of Nonautologous Red Blood Cells into Peripheral Vein, Percutaneous Approach (ICD-10-PCS; principal; 2017-11-25)
DX: E11.9 Type 2 diabetes mellitus without complications (principal); I10 Essential (primary) hypertension; D64.89 Other specified anemias
CPT/HCPCS: 36430; 80053; 83036; 84443; 84550; 85007; 85027; 86850; 86900; 86901; 86922; 96374; P9016

== ENCOUNTER 2017-12-21 09:00 | Inpatient (IN) | payer OTHER ==
[2018-01-18] MEDS ORDERED: TIROSINT100 MCG PO (06:36)
== END 2018-01-21 10:19 | disposition still patient (30) ==
LOC: PAVB 09:00
PROVIDERS: ADMIT Internal Medicine

== ENCOUNTER 2017-12-27 06:15 | Outpatient (CLI) | payer OTHER | END 2017-12-27 19:02 | disposition home or self-care (01) | LOC: LAB 06:15 | DX: D64.9 Anemia, unspecified (principal) | CPT/HCPCS: 36415; 85014; 85018 ==

== ENCOUNTER 2017-12-28 07:55 | Outpatient (CLI) | payer OTHER | END 2017-12-28 22:09 | disposition home or self-care (01) | LOC: INF 07:55 | PROC: 30233N1 Transfusion of Nonautologous Red Blood Cells into Peripheral Vein, Percutaneous Approach (ICD-10-PCS; principal; 2017-12-28) | DX: D64.9 Anemia, unspecified (principal) | CPT/HCPCS: 36430; 85014; 85018; 86850; 86900; 86901; 86922; P9016 ==

== ENCOUNTER 2017-12-28 21:53 | Outpatient (CLI) | payer OTHER | END 2017-12-28 22:42 | disposition home or self-care (01) | LOC: LAB 21:53 | DX: D64.9 Anemia, unspecified (principal) | CPT/HCPCS: 85014; 85018 ==

== ENCOUNTER 2018-01-06 05:56 | Outpatient (CLI) | payer OTHER ==
[2018-01-06 06:41] LABS: POTASSIUM 3.6 mmol/L (3.6-5.2)
== END 2018-01-06 19:36 | disposition home or self-care (01) ==
LOC: LAB 05:56
PROVIDERS: Internal Medicine
DX: R60.9 Edema, unspecified (principal)
CPT/HCPCS: 36415; 80048

== ENCOUNTER 2018-01-18 04:26 | Inpatient (IN) | payer OTHER ==
[~2018-01-18] VITALS: Ht 147.3 cm; Wt 81.7 kg
[2018-01-18 04:42] VITALS: BP 152/59; TEMP 97.5
[2018-01-18 05:10] LABS: PLATELET COUNT 341 K/uL (152-353)
[2018-01-18 05:29] LABS: POTASSIUM 3.4 mmol/L (3.6-5.2)
[2018-01-18] MEDS ORDERED: TIROSINT100 MCG PO (06:36)
[2018-01-18 06:53] VITALS: BP 138/48
[2018-01-18 10:46] VITALS: BP 156/79; TEMP 98.1; Ht 147.3 cm; Wt 81.7 kg
[2018-01-18 12:23] VITALS: BP 119/54; TEMP 97.8
[2018-01-18 16:09] VITALS: BP 131/65; TEMP 98.1
[2018-01-18 20:00] VITALS: BP 111/68; TEMP 98.1
[2018-01-19] VITALS: BP 116/67; TEMP 98.4
[2018-01-19 04:00] VITALS: BP 129/73; TEMP 98
--- NOTE | 2018-01-19 05:55 | NUR ---
01/18/18 2142 LAB CONFIRMED GLUCOSE OF 444. DR. GENTILE CONTACTED AND ORDERS TO FOLLOW SSI. 10 UNITS GIVEN AND GLUCOSE TO BE RECHECKED IN 2HRS.
--- NOTE | 2018-01-19 05:57 | NUR ---
01/18/18 2342 RECHECKED GLUCOSE WITH A RESULT OF 404. 10 UNITS OF NOVLIN R GIVEN AND RECHECK IN TWO HOURS.
--- NOTE | 2018-01-19 05:58 | NUR ---
01/19/18 0142 RECHECKED GLUCOSE WITH A READING OF 253. 6 UNITS OF NOVLIN R GIVEN.
--- NOTE | 2018-01-19 05:59 | NUR ---
01/19/18 0342 RECHECKED GLUCOSE WITH A READING OF 150.
[2018-01-19 06:04] LABS: PLATELET COUNT 318 K/uL (152-353)
[2018-01-19 06:16] LABS: POTASSIUM 3.2 mmol/L (3.6-5.2)
--- NOTE | 2018-01-19 07:42 | NUR ---
01/19/18 0630 LAB REPORTED A CRITICAL HGB OF 6.6. DR GENTILE IS AWARE WITH NEW ORDERS OF TYPE AND CROSS MATCH AND TRANSFUSE 2UNITS OF PRBC.
[2018-01-19 08:00] VITALS: BP 128/77; TEMP 98.2
[2018-01-19 12:00] VITALS: BP 121/71; TEMP 98.2
[2018-01-19 16:00] VITALS: BP 129/83; TEMP 98.2
[2018-01-19 20:00] VITALS: BP 182/98; TEMP 98.2
[2018-01-20] VITALS: BP 141/73; TEMP 97.8
[2018-01-20 03:46] VITALS: BP 155/94; TEMP 98
[2018-01-20 08:00] VITALS: BP 135/84; TEMP 97.9
[2018-01-20 08:33] LABS: PLATELET COUNT 286 K/uL (152-353)
[2018-01-20 08:45] LABS: POTASSIUM 3.9 mmol/L (3.6-5.2)
[2018-01-20 12:00] VITALS: BP 128/79; TEMP 98.2
[2018-01-20 16:00] VITALS: BP 139/79; TEMP 98.2
[2018-01-20 20:00] VITALS: BP 139/70; TEMP 98.1
[2018-01-21] VITALS: BP 142/79; TEMP 97.7
[2018-01-21 04:00] VITALS: BP 146/80; TEMP 98.3
[2018-01-21 05:33] LABS: PLATELET COUNT 277 K/uL (152-353)
[2018-01-21 05:46] LABS: POTASSIUM 4.1 mmol/L (3.6-5.2)
[2018-01-21 07:59] VITALS: BP 131/72; TEMP 98.1
[2018-01-21 12:05] VITALS: BP 113/74; TEMP 98.4
[2018-01-21 16:00] VITALS: BP 121/78; TEMP 97.8
--- NOTE | 2018-01-21 17:29 | NUR ---
DR GENTILE NOTIFIED OF PATIENTS BG OF 413. STATES TO FOLLOW SLIDING SCALE.
[2018-01-21 20:05] VITALS: BP 150/82; TEMP 97.7
[2018-01-22] VITALS (8 sets, daily range): BP systolic 62–139; BP diastolic 25–90; TEMP 97.1–98.1
[2018-01-22 08:17] LABS: PLATELET COUNT 263 K/uL (152-353)
[2018-01-22 08:28] LABS: POTASSIUM 4.3 mmol/L (3.6-5.2)
--- NOTE | 2018-01-22 12:34 | NUR ---
C/O BACK PAIN HYDROCODONE APAP 5/325 GIVEN PO.
--- NOTE | 2018-01-22 12:52 | NUR ---
C/O NAUSEA GI COCKTAIL GIVEN PO.
--- NOTE | 2018-01-22 12:55 | NUR ---
C/O NAUSEA. PATIENT SOB RESP CALLED TO GIVEN BREATHING TX. 02 SAT 93. O2 SAT AFTER TX 98. Pt. HR 80 BP 104/70.
--- NOTE | 2018-01-22 13:55 | NUR ---
ODALYS PAEZ RN CALLED TO HELP PULL Pt. UP IN BED. Pt. RESP SHALLOW AND UNRESPONSIVE TO STIMULI. EYES OPEN AND DILATED. 02 SAT 88 HR 59 B/P 104/78. Pt. COOL AND CLAMMY. LIPS AND FINGER BLUE IN COLOR.
--- NOTE | 2018-01-22 14:00 | NUR ---
DR. JACOBSON NOTIFIED. NEW ORDERS TO TRANSFER Pt. TO ICU.
--- NOTE | 2018-01-22 14:13 | NUR ---
Pt. TRANSFERRED TO ICU VIA BED.
[2018-01-22 14:55] LABS: PLATELET COUNT 83 K/uL (152-353)
[2018-01-22 15:43] LABS: POTASSIUM 8.1 mmol/L (3.6-5.2)
[2018-01-22 16:17] LABS: PARTIAL THROMBOPLASTIN TIME 23.8 SECONDS (24.5-33.6)
--- NOTE | 2018-01-22 16:29 | NUR ---
AT 1350 NURSE HCOLLINS ENTERED ROOM, PT WAS SLUMPED DOWN IN THE BED, PT HAD POINTED AT HERSELF AND THEN DROPPED HEAD TO CHEST. NURSE NOTED ABNORMAL BREATHING PATTERN. NURSE NOTED LIPS WAS PALE AND FINGERS WAS CYANOTIC, NURSE CALLED FOR GRZEGORZ GALVAN WHO ENTERED THE ROOM AND STARTED TAKING PT BP AND CHECKING 02 SAT. PT WAS VERY LETHARGIC AND WOULD OPEN EYES TO PAINFUL STIMULI BUT THEN CLOSE THEM AGAIN. PT WAS TRANSPORTED TO ICU PER MD ORDERS.
--- NOTE | 2018-01-22 17:26 | NUR ---
@1413 PT FROM MED/SURG TO ICU, O2 @4L NC, IV TO RIGHT HAND SALINE LOCKED, NO IVF INFUSING, PT C/O NAUSEA/GAGGING ON ARRIVAL @1421 EKG DONE, LABS DRAWN FROM NEW IV SITE TO RIGHT UPPER ARM PER GRZEGORZ MENDOZA, RN @1445 DR GENTILE IN ROOM TO SEE PT, ORDER FOR CENTRAL LINE, PHONE CONSENT ACHIEVED PER DR GENTILE, WITNESSED BY DIRECT SERVICE PROFESSIONAL @1450 DR STARLA DAVIS IN ROOM FOR CENTRAL LINE PLACEMENT, PHENERGAN 12.5MG IVPB STARTED PER GRZEGORZ MENDOZARN @1500 TRIPLE LUMEN CENTRAL LINE TO RIGHT SUBCLAVIAN, ALL 3 LINES FLUSHED WITH 10CC NORMAL SALINE AND GREEN CAP APPLIED, TEGADERM DRESSING APPLIED TO SITE @1508 CHEST XRAY TO CHECK CENTRAL LINE PLACEMENT, OK TO USE CENTRAL LINE, ONE LINE CONNECTED TO IVF INFUSING NORMAL SALINE @1515 DR GENTILE TALKED TO FAMILY ABOUT MAKING PT DNR, PERMISSION GIVEN, CONSENT SIGNED BY MAURILIO YANEZ @1524 BLOOD DRAWN FROM CENTRAL LINE FOR LABS @1531 16FR VASQUEZ CATHETER INSERTED, 50CC CLEAR YELLOW URINE IN DRAINAGE BAG, URINE COLECTED FOR UA IF NEEDED @1530 UNABLE TO GET B/P, HR 20 PER UNDERCUTTER OPERATOR @1534 FAMILY IN ROOM @1545 TIME OF PT @1550 [facility]ED [facility]1559 [facility] CALLED PER VÍCTOR CHAVEZ RN, ORGANS NOT SUITABLE FOR DONATION @1600 PT BELONGINGS GIVEN TO SOFIE YANEZ, AND ISAMAR RODRIGUEZ @1605 CALLED [facility] FOR PICKUP OF BODY @1615 IV REMOVED FROM RIGHT UPPER ARM, VASQUEZ REMOVED, AND CENTRAL LINE REMOVED @1650 [facility] AR[facility]IVED, RELEASED BODY TO
== END 2018-01-22 16:50 | disposition expired | DRG 193 ==
LOC: ED 04:26 → MED/SURG 06:00 → ICU 01-22 14:34
PROVIDERS: Internal Medicine; ADMIT Internal Medicine
PROC: 05H533Z Insertion of Infusion Device into Right Subclavian Vein, Percutaneous Approach (ICD-10-PCS; principal; 2018-01-22)
DX: J18.8 Other pneumonia, unspecified organism (principal); I50.23 Acute on chronic systolic (congestive) heart failure; I13.0 Hypertensive heart and chronic kidney disease with heart failure and stage 1 through stage 4 chronic kidney disease, or unspecified chronic kidney disease; N18.4 Chronic kidney disease, stage 4 (severe); M48.54XA Collapsed vertebra, not elsewhere classified, thoracic region, initial encounter for fracture; I42.8 Other cardiomyopathies; I48.91 Unspecified atrial fibrillation; I25.10 Atherosclerotic heart disease of native coronary artery without angina pectoris; I10 Essential (primary) hypertension; J44.9 Chronic obstructive pulmonary disease, unspecified; K21.9 Gastro-esophageal reflux disease without esophagitis; K57.90 Diverticulosis of intestine, part unspecified, without perforation or abscess without bleeding; E03.8 Other specified hypothyroidism; E11.42 Type 2 diabetes mellitus with diabetic polyneuropathy; D64.9 Anemia, unspecified; M79.7 Fibromyalgia; E11.22 Type 2 diabetes mellitus with diabetic chronic kidney disease; I27.20 Pulmonary hypertension, unspecified; E87.6 Hypokalemia; D46.Z Other myelodysplastic syndromes; R09.89 Other specified symptoms and signs involving the circulatory and respiratory systems; I44.7 Left bundle-branch block, unspecified
CPT/HCPCS: 36415; 36591; 36600; 51702; 80053; 80202; 81000; 82550; 82805; 82947; 83735; 83880; 84484; 85027; 85379; 85610; 85730; 86850; 86900; 86901; 86922; 87040; 93005; 93306; 94640; 94664; 94760; 96365; 96375; 99284; C1768; J0456; J0696; J1815; J1940; J2405; J2550; J3370; J3490; P9016

== ENCOUNTER 2018-01-21 11:06 | Inpatient (IN) | payer OTHER ==
[~2018-01-21 11:06] MED LIST changes: +TIROSINT100 MCG PO
== END 2018-01-22 15:30 | disposition expired ==
LOC: PAVB 11:06
PROVIDERS: ADMIT Internal Medicine